=== PATIENT | male | born 1990 | race Caucasian/White ===

== ENCOUNTER 2019-09-06 11:38 | Emergency (ER) | payer OTHER ==
[2019-09-06] MEDS ORDERED: Sodium Chloride 0.9% 1000 ML 1,000 ML IV STA ×3 (11:50→14:32)
[2019-09-06] MEDS ORDERED: PROTONIX 40 MG IV IV ONE ×2 (11:50→12:19)
[2019-09-06] MEDS ORDERED: Zofran 4 MG/2 ML VIAL IV ONE (11:50)
--- NOTE | 2019-09-06 11:50 | ERPHSYRPT ---
- History of Present Illness Time Seen by Provider: 09/06/19 11:46 Historian: patient Exam Limitations: no limitations Physician History: This is a 28-year-old obese white male who is had his gallbladder removed in the past and presents with 2-day history of nausea vomiting diarrhea. He denies fevers. He denies excessive alcohol use. He does state he did have alcohol intake on Friday night prior to these symptoms on Friday. However, he did not drink any more than usual. Patient has no flulike symptoms other than the vomiting and diarrhea. No other individuals in the family or that he is around has similar symptoms. She did not have abdominal pain until he began vomiting several times. He states he is unable to hold any oral intake down. Patient states he is never had anything like this before. Timing/Duration: day(s) (2) Activities at Onset: none Quality: fullness Abdominal Pain Onset Location: generalized abdomen Pain Radiation: no radiation Severity of Pain-Max: mild Severity of Pain-Current: mild Modifying Factors: Improves With: vomiting Associated Symptoms: diarrhea, nausea, vomiting Previous symptoms: no prior history Allergies/Adverse Reactions: Penicillins Allergy (Severe, Verified 09/06/19 11:50) large hives Home Medications: Omeprazole Magnesium [Prilosec Otc] 20 mg PO DAILY PRN 09/06/19 [History] - Review of Systems Constitutional: No Symptoms Eyes: No Symptoms Ears, Nose, & Throat: No Symptoms Respiratory: No Symptoms Cardiac: No Symptoms Abdominal/Gastrointestinal: Abdominal Pain, Nausea, Vomiting, Diarrhea Genitourinary Symptoms: No Symptoms Musculoskeletal: No Symptoms Skin: No Symptoms Neurological: No Symptoms Psychological: No Symptoms Endocrine: No Symptoms Hematologic/Lymphatic: No Symptoms Immunological/Allergic: No Symptoms All Other Systems: Reviewed and Negative - Past Medical History Pertinent Past Medical History: Yes Neurological History: No Pertinent History ENT History: No Pertinent History Cardiac History: No Pertinent History Respiratory History: No Pertinent History Endocrine Medical History: No Pertinent History Musculoskeletal History: No Pertinent History GI Medical History: Gallbladder Disease History: No Pertinent History Psycho-Social History: No Pertinent History Male Reproductive Disorders: No Pertinent History - Past Surgical History Neuro Surgical History: No Pertinent History Cardiac: No Pertinent History Respiratory: No Pertinent History Gastrointestinal: No Pertinent History Genitourinary: No Pertinent History Musculoskeletal: No Pertinent History Male Surgical History: No Pertinent History - Nursing Vital Signs Nursing Vital Signs: Initial Vital Signs Temperature 98.1 F 09/06/19 11:44 Pulse Rate 117 H 09/06/19 11:44 Respiratory Rate 20 09/06/19 11:44 Blood Pressure 136/112 09/06/19 11:44 O2 Sat by Pulse Oximetry 94 L 09/06/19 11:44 Pain Scale Pain Intensity 0 - Physical Exam General Appearance: mild distress, alert, anxiety Eye Exam: PERRL/EOMI, eyes nml inspection Ears, Nose, Throat Exam: normal ENT inspection, moist mucous membranes Neck Exam: normal inspection, non-tender, supple, full range of motion Respiratory Exam: normal breath sounds, lungs clear, airway intact, No chest tenderness, No respiratory distress Cardiovascular Exam: regular rate/rhythm, normal heart sounds, normal peripheral pulses Gastrointestinal/Abdomen Exam: soft, normal bowel sounds, tenderness (mild diffuse), No guarding, No rebound Rectal Exam: not done Back Exam: normal inspection, normal range of motion, No CVA tenderness, No vertebral tenderness Extremity Exam: normal inspection, normal range of motion, pelvis stable Neurologic Exam: alert, oriented x 3, cooperative, 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-XII nml as tested, normal mood/affect, nml cerebellar function, nml station & gait Skin Exam: normal color, warm, dry Lymphatic Exam: No adenopathy SpO2 Interpretation: normal O2 Delivery: Room Air - Course Nursing assessment & vital signs reviewed: Yes Ordered Tests: Active Orders 24 hr Category Date Time Status IV Insertion STAT Care 09/06/19 11:50 Active ABDOMEN AND PELVIS W/0 CONTRAS [CT] Stat Exams 09/06/19 11:51 Completed AMYLASE Stat Lab 09/06/19 11:55 Completed CBC W DIFF Stat Lab 09/06/19 11:55 Completed CMP Stat Lab 09/06/19 11:55 Completed LIPASE Stat Lab 09/06/19 11:55 Completed UA W/RFX UR CULTURE Stat Lab 09/06/19 14:26 Completed Medication Summary Generic Name Dose Route Start Last Admin Trade Name Freq PRN Reason Stop Dose Admin Sodium Chloride 1,000 mls @ 999 mls/hr 09/06/19 14:32 09/06/19 14:36 Sodium Chloride 0.9% 1000 Ml IV 09/06/19 15:32 999 mls/hr .Q1H1M STA Administration Discontinued Medications Generic Name Dose Route Start Last Admin Trade Name Freq PRN Reason Stop Dose Admin Sodium Chloride 1,000 mls @ 999 mls/hr 09/06/19 11:50 09/06/19 13:09 Sodium Chloride 0.9% 1000 Ml IV 09/06/19 12:50 Infused .Q1H1M STA Infusion Sodium Chloride Confirm 09/06/19 12:19 Sodium Chloride 0.9% 1000 Ml Administered 09/06/19 12:20 Dose 1,000 mls @ ud .ROUTE .STK-MED ONE Sodium Chloride 1,000 mls @ 999 mls/hr 09/06/19 13:08 09/06/19 14:13 Sodium Chloride 0.9% 1000 Ml IV 09/06/19 14:08 Infused .Q1H1M STA Infusion Sodium Chloride Confirm 09/06/19 13:11 Sodium Chloride 0.9% 1000 Ml Administered 09/06/19 13:12 Dose 1,000 mls @ ud .ROUTE .STK-MED ONE Sodium Chloride Confirm 09/06/19 14:35 Sodium Chloride 0.9% 1000 Ml Administered 09/06/19 14:36 Dose 1,000 mls @ ud .ROUTE .STK-MED ONE Metronidazole 500 mg 09/06/19 14:32 09/06/19 14:36 Flagyl 500 Mg PO 09/06/19 14:33 500 mg STAT ONE Administration Metronidazole Confirm 09/06/19 14:35 Flagyl 500 Mg Administered 09/06/19 14:36 Dose 500 mg .ROUTE .STK-MED ONE Ondansetron HCl 4 mg 09/06/19 11:50 09/06/19 12:21 Zofran 4 Mg/2 Ml Vial IV 09/06/19 11:51 4 mg STAT ONE Administration Ondansetron HCl Confirm 09/06/19 12:19 Zofran 4 Mg/2 Ml Vial Administered 09/06/19 12:20 Dose 4 mg .ROUTE .STK-MED ONE Pantoprazole Sodium 40 mg 09/06/19 11:50 09/06/19 12:21 Protonix 40 Mg Iv IV 09/06/19 11:51 40 mg STAT ONE Administration Pantoprazole Sodium Confirm 09/06/19 12:19 Protonix 40 Mg Iv Administered 09/06/19 12:20 Dose 40 mg IV .STK-MED ONE Lab/Rad Data: Laboratory Result Diagrams 09/06/19 11:55 09/06/19 11:55 Laboratory Results 09/06/19 09/06/19 09/06/19 Range/Units 14:26 12:00 11:55 WBC (4.0-10.5) K/mm3 RBC (4.1-5.6) M/mm3 Hgb (12.5-18.0) gm/dl Hct (42-50) % MCV (78-100) fl MCH (26-32) pg MCHC (32-36) g/dl RDW (11.5-14.0) % Plt Count (150-450) K/mm3 MPV (7.5-11.0) fl Gran % (36.0-66.0) % Eos # (Auto) (0-0.5) Absolute Lymphs (auto) (1.0-4.6) Absolute Monos (auto) (0.0-1.3) Lymphocytes % (24.0-44.0) % Monocytes % (0.0-12.0) % Eosinophils % (0.00-5.0) % Basophils % (0.0-0.4) % Absolute Granulocytes (1.4-6.9) Basophils # (0-0.4) Sodium 142 (137-145) mmol/L Potassium 3.6 (3.5-5.1) mmol/L Chloride 101 (98-107) mmol/L Carbon Dioxide 28 (22-30) mmol/L Anion Gap 16.4 H (5-15) MEQ/L BUN 19 (9-20) mg/dL Creatinine 1.21 (0.66-1.25) mg/dL Estimated GFR > 60.0 ML/MIN Glucose 160 H (74-106) mg/dL Calcium 9.8 (8.4-10.2) mg/dL Total Bilirubin 2.10 H (0.2-1.3) mg/dL AST 32 (17-59) U/L ALT 57 H (0-50) U/L Alkaline Phosphatase 65 (38-126) U/L Serum Total Protein 8.8 H (6.3-8.2) g/dL Albumin 5.1 H (3.5-5.0) g/dL Amylase 60 (30-110) U/L Lipase 95 (23-300) U/L Urine Color ESTELA (YELLOW) Urine Appearance CLEAR (CLEAR) Urine pH 6.0 (5-6) Ur Specific [place] 1.031 (1.005-1.025) Urine Protein 100 (Negative) Urine Ketones NEGATIVE (NEGATIVE) Urine Blood NEGATIVE (0-5) Davie/ul Urine Nitrite NEGATIVE (NEGATIVE) Urine Bilirubin NEGATIVE (NEGATIVE) Urine Urobilinogen 4 (0-1) mg/dL Ur Leukocyte Esterase NEGATIVE (NEGATIVE) Urine WBC (Auto) NONE (0-5) /HPF Urine RBC (Auto) NONE (0-2) /HPF U Epithel Cells (Auto) NONE (FEW) /HPF Urine Bacteria (Auto) NONE (NEGATIVE) /HPF Urine Mucus (Auto) SLIGHT (NEGATIVE) /HPF Urine Culture Reflexed NO (NO) Urine Glucose NEGATIVE (NEGATIVE) mg/dL Influenza Type A Ag NEGATIVE (NEGATIVE) Influenza Type B Ag NEGATIVE (NEGATIVE) RSV (PCR) NEGATIVE (Negative) 09/06/19 Range/Units 11:55 WBC 11.2 H (4.0-10.5) K/mm3 RBC 5.81 H (4.1-5.6) M/mm3 Hgb 18.1 H (12.5-18.0) gm/dl Hct 51.6 H (42-50) % MCV 88.8 (78-100) fl MCH 31.2 (26-32) pg MCHC 35.1 (32-36) g/dl RDW 13.0 (11.5-14.0) % Plt Count 285 (150-450) K/mm3 MPV 9.8 (7.5-11.0) fl Gran % 64.3 (36.0-66.0) % Eos # (Auto) 0.26 (0-0.5) Absolute Lymphs (auto) 2.57 (1.0-4.6) Absolute Monos (auto) 1.12 (0.0-1.3) Lymphocytes % 23.0 L (24.0-44.0) % Monocytes % 10.0 (0.0-12.0) % Eosinophils % 2.3 (0.00-5.0) % Basophils % 0.4 (0.0-0.4) % Absolute Granulocytes 7.17 H (1.4-6.9) Basophils # 0.04 (0-0.4) Sodium (137-145) mmol/L Potassium (3.5-5.1) mmol/L Chloride (98-107) mmol/L Carbon Dioxide (22-30) mmol/L Anion Gap (5-15) MEQ/L BUN (9-20) mg/dL Creatinine (0.66-1.25) mg/dL Estimated GFR ML/MIN Glucose (74-106) mg/dL Calcium (8.4-10.2) mg/dL Total Bilirubin (0.2-1.3) mg/dL AST (17-59) U/L ALT (0-50) U/L Alkaline Phosphatase (38-126) U/L Serum Total Protein (6.3-8.2) g/dL Albumin (3.5-5.0) g/dL Amylase (30-110) U/L Lipase (23-300) U/L Urine Color (YELLOW) Urine Appearance (CLEAR) Urine pH (5-6) Ur Specific [place] (1.005-1.025) Urine Protein (Negative) Urine Ketones (NEGATIVE) Urine Blood (0-5) Davie/ul Urine Nitrite (NEGATIVE) Urine Bilirubin (NEGATIVE) Urine Urobilinogen (0-1) mg/dL Ur Leukocyte Esterase (NEGATIVE) Urine WBC (Auto) (0-5) /HPF Urine RBC (Auto) (0-2) /HPF U Epithel Cells (Auto) (FEW) /HPF Urine Bacteria (Auto) (NEGATIVE) /HPF Urine Mucus (Auto) (NEGATIVE) /HPF Urine Culture Reflexed (NO) Urine Glucose (NEGATIVE) mg/dL Influenza Type A Ag (NEGATIVE) Influenza Type B Ag (NEGATIVE) RSV (PCR) (Negative) - Progress Progress: improved Progress Note: 09/06/19 15:01 The CAT scan of the abdomen and pelvis reveals distal esophagitis and jejunal enteritis. States that he is feeling much better. Counseled pt/family regarding: lab results, diagnosis, need for follow-up, rad results - Departure Departure Disposition: Home Clinical Impression: Enteritis, Esophagitis Condition: Stable Critical Care Time: No Additional Instructions: Plenty of clear liquids. Advance your diet as discussed. Take your Prilosec medication daily until you speak with your primary care doctor. Follow-up with your primary care doctor for further management and possible referral to a speeder worker if indicated. Take your medications as prescribed. Avoid fatty greasy spicy foods. Prescriptions: Ondansetron ODT 4 MG [Zofran Odt 4 mg] 4 mg PO Q6H PRN PRN #10 tab.rapdis PRN Reason: Vomiting Metronidazole 500 mg [Flagyl 500 MG] 500 mg PO TID #21 tablet
[2019-09-06 12:07] LABS: Absolute Neutrophil Ct (ANC) 7.17 (1.4-6.9); BASOPHIL % 0.4 % (0.0-0.4); Basophil (Absolute #) 0.04 (0-0.4); Eosinophil % 2.3 % (0.00-5.0); Eosinophil (Absolute #) 0.26 (0-0.5); Hematocrit 51.6 % (42-50); Hemoglobin 18.1 gm/dl (12.5-18.0); Lymphocyte (Absolute #) 2.57 (1.0-4.6); Mean Cell Volume 88.8 fl (78-100); Mean Corpuscular Hemoglobin 31.2 pg (26-32); Mean Corpuscular Hgb Concent. 35.1 g/dl (32-36); Mean Platelet Volume 9.8 fl (7.5-11.0); Monocyte (Absolute #) 1.12 (0.0-1.3); Neutrophil % 64.3 % (36.0-66.0); Platelet Count 285 K/mm3 (150-450); Red Blood Count 5.81 M/mm3 (4.1-5.6); White Blood Count 11.2 K/mm3 (4.0-10.5)
[2019-09-06 12:19] LABS: ALBUMIN 5.1 g/dL (3.5-5.0); ALKALINE PHOSPHATASE 65 U/L (38-126); AMYLASE 60 U/L (30-110); ANION GAP 16.4 MEQ/L (5-15); BLOOD UREA NITROGEN 19 mg/dL (9-20); CHLORIDE 101 mmol/L (98-107); Calcium 9.8 mg/dL (8.4-10.2); Carbon Dioxide 28 mmol/L (22-30); Creatinine 1 1.21 mg/dL (0.66-1.25); Glucose 160 mg/dL (74-106); LIPASE 95 U/L (23-300); Potassium 3.6 mmol/L (3.5-5.1); SGOT/AST 32 U/L (17-59); SGPT/ALT 57 U/L (0-50); SODIUM 142 mmol/L (137-145); Total Protein 8.8 g/dL (6.3-8.2)
[2019-09-06] MEDS ORDERED: Zofran 4 MG/2 ML VIAL ONE (12:19)
[2019-09-06] MEDS ORDERED: Sodium Chloride 0.9% 1000 ML 1,000 ML ONE ×3 (12:19→14:35)
--- NOTE | 2019-09-06 12:22 | XRAY ---
Indication: Vomiting and diarrhea 3 days. Multiple contiguous axial images obtained through the abdomen and pelvis without contrast as ordered. Comparison: None Lung bases clear with incidental left lower lobe calcified granulomas. Heart is not enlarged. Tiny distal paraesophageal calcified node and centimeters/subcentimeter nodes. Distal esophagus demonstrate moderate circumferential wall thickening, possible reflux esophagitis. Small hiatal hernia. Noncontrasted stomach and bowel loops appear nonobstructed. Left mid abdomen demonstrates mild fluid distended jejunal bowel loops with wall thickening favoring enteritis. Normal appendix. No free fluid/air. Mild diffuse fatty liver and previous cholecystectomy. Remaining liver, pancreas, spleen, adrenal glands, kidneys, ureters, bladder, and aorta appear unremarkable for noncontrast exam. Osseous structures intact. No ventral or inguinal hernias. Impression: 1. Mild fluid distended jejunum with wall thickening favoring enteritis. 2. Small hiatal hernia with distal esophageal circumferential wall thickening. Rule out reflux esophagitis. 3. Incidental fatty liver and evidence for old granulomatous disease.
[2019-09-06 12:39] LABS: INFLUENZA A NEGATIVE (NEGATIVE); INFLUENZA B NEGATIVE (NEGATIVE); RESPIRATORY SYNCTIAL VIRUS NEGATIVE (Negative)
[2019-09-06 14:10] VITALS: BP 124/89; O2SAT 94
[2019-09-06] MEDS ORDERED: Flagyl 500 MG PO ONE (14:32)
[2019-09-06] MEDS ORDERED: Flagyl 500 MG ONE (14:35)
[2019-09-06 14:40] LABS: Appearance CLEAR (CLEAR); Bilirubin NEGATIVE (NEGATIVE); Blood NEGATIVE Ery/ul (0-5); Glucose NEGATIVE (NEGATIVE); Ketones NEGATIVE (NEGATIVE); Leukocyte Esterase NEGATIVE (NEGATIVE); Mucus SLIGHT /HPF (NEGATIVE); Nitrite NEGATIVE (NEGATIVE); Protein,Urine Dip 100 (Negative); Specific Gravity 1.031 (1.005-1.025); Urobilinogen 4 mg/dL (0-1)
[2019-09-06 14:58] VITALS: PULSE 86
== END 2019-09-06 15:42 | disposition home or self-care (01) ==
LOC: ED 11:38
DX: K52.9 Noninfective gastroenteritis and colitis, unspecified (principal); K20.9 Esophagitis, unspecified; R19.7 Diarrhea, unspecified; R11.2 Nausea with vomiting, unspecified; R10.9 Unspecified abdominal pain
CPT/HCPCS: 36000; 36415; 74176; 80053; 81001; 82150; 83690; 85025; 87631; 96360; 96361; 96374; 96375; 99285; J2405; A9270-GY

== ENCOUNTER 2019-09-25 20:48 | Emergency (ER) | payer OTHER ==
--- NOTE | 2019-09-25 20:57 | ERPHSYRPT ---
- History of Present Illness Time Seen by Provider: 09/25/19 20:57 Source: patient, family Exam Limitations: no limitations Physician History: This is a 28-year-old male who stepped wrong off of a curb last night and twisted his ankle. Today has more pain swelling and bruising present on the left ankle. He presents with left ankle pain and swelling and bruising. Method of Injury: twisted Occurred: yesterday Quality: aching, throbbing Severity of Pain-Max: mild Severity of Pain-Current: mild Lower Extremities Pain: ankle: left Modifying Factors: Improves With: movement Associated Symptoms: other (Able to bear weight but hurts to do so) Allergies/Adverse Reactions: Penicillins Allergy (Severe, Verified 09/25/19 21:06) large hives Home Medications: Omeprazole Magnesium [Prilosec Otc] 20 mg PO DAILY PRN 09/06/19 [History] Hx Tetanus, Diphtheria Vaccination/Date Given: Yes Hx Influenza Vaccination/Date Given: No Hx Pneumococcal Vaccination/Date Given: No - Review of Systems Constitutional: No Symptoms Eyes: No Symptoms Ears, Nose, & Throat: No Symptoms Respiratory: No Symptoms Cardiac: No Symptoms Abdominal/Gastrointestinal: No Symptoms Genitourinary Symptoms: No Symptoms Musculoskeletal: Injury (Left ankle) Skin: No Symptoms Neurological: No Symptoms Psychological: No Symptoms Endocrine: No Symptoms Hematologic/Lymphatic: No Symptoms Immunological/Allergic: No Symptoms All Other Systems: Reviewed and Negative - Past Medical History Pertinent Past Medical History: Yes Neurological History: No Pertinent History ENT History: No Pertinent History Cardiac History: No Pertinent History Respiratory History: No Pertinent History Endocrine Medical History: No Pertinent History Musculoskeletal History: No Pertinent History GI Medical History: Gallbladder Disease History: No Pertinent History Psycho-Social History: No Pertinent History Male Reproductive Disorders: No Pertinent History - Past Surgical History Past Surgical History: Yes Neuro Surgical History: No Pertinent History Cardiac: No Pertinent History Respiratory: No Pertinent History Gastrointestinal: No Pertinent History Genitourinary: No Pertinent History Musculoskeletal: No Pertinent History Male Surgical History: No Pertinent History Other Surgical History: federico. left collar bone - Social History Smoking Status: Former smoker Exposure to second hand smoke: Yes Drug Use: none Patient Lives Alone: No - Nursing Vital Signs Nursing Vital Signs: Initial Vital Signs Temperature 98.2 F 09/25/19 20:56 Pulse Rate 130 H 09/25/19 20:56 Respiratory Rate 18 03/07/20 20:56 Blood Pressure 148/102 09/25/19 20:56 O2 Sat by Pulse Oximetry 96 09/25/19 20:56 Pain Scale Pain Intensity 7 - Physical Exam General Appearance: no apparent distress, alert, anxiety Eyes, Ears, Nose, Throat Exam: normal ENT inspection, moist mucous membranes Neck Exam: normal inspection, non-tender, supple, full range of motion Cardiovascular/Respiratory Exam: chest non-tender Gastrointestinal/Abdominal Exam: non-tender Back Exam: normal inspection, normal range of motion, No CVA tenderness, No vertebral tenderness Hips Exam: bilateral: non-tender, normal inspection, normal range of motion, no evidence of injury Legs Exam: bilateral leg: non-tender, normal inspection, normal range of motion , no evidence of injury Knees Exam: bilateral knee: non-tender, normal inspection, normal range of motion, no evidence of injury Ankle Exam: right ankle: non-tender, normal inspection, normal range of motion, no evidence of injury, left ankle: ecchymosis, soft tissue tenderness, swelling Foot Exam: bilateral foot: non-tender, normal inspection, normal range of motion , no evidence of injury Neuro/Tendon Exam: normal sensation, normal motor functions, normal tendon functions Mental Status Exam: alert, oriented x 3, cooperative Skin Exam: normal color, warm, dry SpO2 Interpretation: normal O2 Delivery: Room Air - Course Nursing assessment & vital signs reviewed: Yes Ordered Tests: Active Orders 24 hr Category Date Time Status ANKLE (3 VIEWS) Stat Exams 09/25/19 21:00 Taken Medication Summary Generic Name Dose Route Start Last Admin Trade Name Freq PRN Reason Stop Dose Admin Oxycodone/Acetaminophen 2 tab 09/25/19 21:52 Percocet Tablet 5/325mg PO 09/25/19 21:53 SENT HOME W/ PATIENT STA Discontinued Medications Generic Name Dose Route Start Last Admin Trade Name Freq PRN Reason Stop Dose Admin Oxycodone/Acetaminophen 1 tab 09/25/19 21:51 Percocet Tablet 5/325mg PO 09/25/19 21:52 STAT STA - Progress Progress: improved Progress Note: 09/25/19 21:53 X-ray of left ankle reveals no acute fracture or dislocation Counseled pt/family regarding: diagnosis, need for follow-up, rad results - Departure Departure Disposition: Home Clinical Impression: Left ankle sprain Condition: Stable Critical Care Time: No Referrals: ADALI ANGELO FNP, [Primary Care Provider] - Additional Instructions: Use Kevin wrap and crutches as needed for comfort. Weightbearing as tolerated. Add ibuprofen 600 mg orally with food 3 times a day for pain control. Follow- up with your primary care physician or with the [facility] orthopedic clinic for persistent symptoms. Forms: Ortho Referral
[2019-09-25] MEDS ORDERED: PERCOCET TABLET 5/325MG PO STA ×2 (21:51→21:52)
[2019-09-25] MEDS ORDERED: PERCOCET TABLET 5/325MG ONE (21:57)
[2019-09-25 22:09] VITALS: BP 132/99; PULSE 104; O2SAT 97
--- NOTE | 2019-09-26 08:51 | XRAY ---
Indication: Pain following injury. Comparison: None 3 views of the right ankle demonstrates mild soft tissue swelling and tiny heel spurs. No other bony, articular, or soft tissue abnormalities.
== END 2019-09-25 22:25 | disposition home or self-care (01) ==
LOC: ED 20:48
DX: S93.402A Sprain of unspecified ligament of left ankle, initial encounter (principal); W10.1XXA Fall (on)(from) sidewalk curb, initial encounter; M25.572 Pain in left ankle and joints of left foot
CPT/HCPCS: 73610; 99284; A9270-GY

== ENCOUNTER 2020-07-23 21:04 | Emergency (ER) | payer OTHER ==
[2020-07-23 21:18] VITALS: PULSE 97
[2020-07-23 21:42] LABS: Amourphous Crystal FEW /HPF (NEGATIVE); Appearance SLIGHTLY CLOUDY (CLEAR); Bacteria RARE /HPF (NEGATIVE); Bilirubin NEGATIVE (NEGATIVE); Blood NEGATIVE Ery/ul (0-5); Glucose NEGATIVE (NEGATIVE); Ketones NEGATIVE (NEGATIVE); Leukocyte Esterase NEGATIVE (NEGATIVE); Mucus SLIGHT /HPF (NEGATIVE); Nitrite NEGATIVE (NEGATIVE); Protein,Urine Dip 30 (Negative); Specific Gravity 1.031 (1.005-1.025); Urobilinogen 2 mg/dL (0-1)
[2020-07-23 21:58] LABS: BASOPHIL % 0.3 % (0.0-0.4); Basophil (Absolute #) 0.01 (0-0.4); Eosinophil % 5.9 % (0.00-5.0); Eosinophil (Absolute #) 0.22 (0-0.5); Hematocrit 44.4 % (42-50); Hemoglobin 15.2 gm/dl (12.5-18.0); Lymphocyte (Absolute #) 1.32 (1.0-4.6); Lymphocytes % 35.7 % (24.0-44.0); Mean Cell Volume 90.8 fl (78-100); Mean Corpuscular Hemoglobin 31.1 pg (26-32); Mean Corpuscular Hgb Concent. 34.2 g/dl (32-36); Monocyte (Absolute #) 0.45 (0.0-1.3); Monocytes % 12.2 % (0.0-12.0); Neutrophil % 45.9 % (36.0-66.0); Platelet Count 164 K/mm3 (150-450); Red Blood Count 4.89 M/mm3 (4.1-5.6); Red Cell Distribution Width 12.4 % (11.5-14.0); White Blood Count 3.7 K/mm3 (4.0-10.5)
[2020-07-23 22:11] LABS: ALBUMIN 4.2 g/dL (3.5-5.0); ALKALINE PHOSPHATASE 51 U/L (38-126); AMYLASE 40 U/L (30-110); ANION GAP 10.6 MEQ/L (5-15); BLOOD UREA NITROGEN 15 mg/dL (9-20); CHLORIDE 105 mmol/L (98-107); Calcium 8.7 mg/dL (8.4-10.2); Carbon Dioxide 25 mmol/L (22-30); Creatinine 1 1.15 mg/dL (0.66-1.25); EST GLOMERULAR FILTRATION RATE > 60.0 ML/MIN; Glucose 127 mg/dL (74-106); LIPASE 196 U/L (23-300); SGOT/AST 51 U/L (17-59); SGPT/ALT 89 U/L (0-50); SODIUM 137 mmol/L (137-145); Total Protein 7.4 g/dL (6.3-8.2)
--- NOTE | 2020-07-23 22:33 | ERPHSYRPT ---
- History of Present Illness Time Seen by Provider: 07/23/20 21:25 Historian: patient Exam Limitations: no limitations Patient Subjective Stated Complaint: pt c/o lt sided lower abd pain Triage Nursing Assessment: pt c/o lt sided lower abd pain, states, "it felt like I was being stabbed with a knife and someone was twisting it. this occured 2-3 times". Pt's informed him his abd was discolored and turning purple and made him come to Er. Pt has multiple stretch toledo to abd that are purple in color, all which appear normal to this pt. Abd lg, obese with active bs x4 quad, tender to LLQ on palpation. Pts had diarrhea 3-4 times today, c/o body aches. Physician History: Patient is a 29-year-old male who presents with a complaint of left sided abdominal pain sharp stabbing pains which lasts a few minutes and come and go. His noted that he had some bluish discoloration to his abdomen and that when she pressed the area it would eun. It should be noted he has marked stretch [place]o which are quite blue in color. He denies any fever chills sweats nasal congestion sore throat cough etc. Timing/Duration: today Activities at Onset: none Quality: sharpness, stabbing Abdominal Pain Onset Location: LLQ Pain Radiation: no radiation Severity of Pain-Max: moderate Severity of Pain-Current: none Modifying Factors: Improves With: nothing Associated Symptoms: diarrhea Previous symptoms: no prior history Allergies/Adverse Reactions: Penicillins Allergy (Severe, Verified 07/23/20 21:24) large hives Home Medications: Omeprazole Magnesium [Prilosec Otc] 20 mg PO DAILY PRN 09/06/19 [History] Hx Tetanus, Diphtheria Vaccination/Date Given: Yes Hx Influenza Vaccination/Date Given: No Hx Pneumococcal Vaccination/Date Given: No Immunizations Up to Date: Yes Travel Risk - International Travel Have you traveled outside of the country in past 3 weeks: No - Coronavirus Screening Are you exhibiting any of the following symptoms?: Yes Symptoms: Vomiting/Diarrhea, Headaches/Body Aches/Fatigue Close contact with a COVID-19 positive Pt in past 14-21 Days: No - Review of Systems Constitutional: No Fever, No Chills Eyes: No Symptoms Ears, Nose, & Throat: No Symptoms Respiratory: No Cough, No Dyspnea Cardiac: No Chest Pain, No Edema, No Syncope Abdominal/Gastrointestinal: Abdominal Pain, Diarrhea, No Nausea, No Vomiting Genitourinary Symptoms: No Dysuria Musculoskeletal: No Back Pain, No Neck Pain Skin: No Rash Neurological: No Dizziness, No Focal Weakness, No Sensory Changes Psychological: No Symptoms Endocrine: No Symptoms All Other Systems: Reviewed and Negative - Past Medical History Pertinent Past Medical History: Yes Neurological History: No Pertinent History ENT History: No Pertinent History Cardiac History: No Pertinent History Respiratory History: No Pertinent History Endocrine Medical History: No Pertinent History Musculoskeletal History: No Pertinent History GI Medical History: Gallbladder Disease History: No Pertinent History Psycho-Social History: No Pertinent History Male Reproductive Disorders: No Pertinent History - Past Surgical History Past Surgical History: Yes Neuro Surgical History: No Pertinent History Cardiac: No Pertinent History Respiratory: No Pertinent History Gastrointestinal: Cholecystectomy Genitourinary: No Pertinent History Musculoskeletal: Orthopedic Surgery Male Surgical History: No Pertinent History Other Surgical History: [place]. left collar bone. lt shoulder surgery - Social History Smoking Status: Never smoker Exposure to second hand smoke: No Drug Use: none Patient Lives Alone: No - Nursing Vital Signs Nursing Vital Signs: Initial Vital Signs Temperature 99.1 F 07/23/20 21:10 Pulse Rate 97 H 07/23/20 21:10 Respiratory Rate 18 07/23/20 21:10 Blood Pressure 136/97 07/23/20 21:10 O2 Sat by Pulse Oximetry 96 07/23/20 21:10 Pain Scale Pain Intensity 4 - Physical Exam General Appearance: no apparent distress, alert Eye Exam: PERRL/EOMI, eyes nml inspection Ears, Nose, Throat Exam: normal ENT inspection, pharynx normal, moist mucous membranes Neck Exam: normal inspection, non-tender, supple, full range of motion Respiratory Exam: normal breath sounds, lungs clear, No respiratory distress Cardiovascular Exam: regular rate/rhythm, normal heart sounds Gastrointestinal/Abdomen Exam: soft, No tenderness, No mass Back Exam: normal inspection, normal range of motion, No CVA tenderness, No vertebral tenderness Extremity Exam: normal inspection, normal range of motion, pelvis stable Neurologic Exam: alert, oriented x 3, cooperative, normal mood/affect, nml cerebellar function, sensation nml, No motor deficits Skin Exam: warm, dry, other (Patient exhibits multiple stretch [place]o on his abdomen which are somewhat blue in color.) SpO2: 96 - Course Nursing assessment & vital signs reviewed: Yes - CT Exams Abdomen/Pelvis CT Interpretation: Tele-radiologist Report, Other (Total radiologist report states that the abdomen pelvis are unremarkable however patches of groundglass opacities in the bases of both lungs are noted consistent with infection pneumonitis etc.) Ordered Tests: Active Orders 24 hr Category Date Time Status ABDOMEN AND PELVIS W/0 CONTRAS [CT] Stat Exams 07/23/20 21:17 Taken AMYLASE Stat Lab 07/23/20 21:45 Completed CBC W DIFF Stat Lab 07/23/20 21:45 Completed CMP Stat Lab 07/23/20 21:45 Completed LIPASE Stat Lab 07/23/20 21:45 Completed UA W/RFX UR CULTURE Stat Lab 07/23/20 21:30 Completed Lab/Rad Data: Laboratory Result Diagrams 07/23/20 21:45 07/23/20 21:45 Laboratory Results 07/23/20 07/23/20 07/23/20 Range/Units 21:45 21:45 21:30 WBC 3.7 L (4.0-10.5) K/mm3 RBC 4.89 (4.1-5.6) M/mm3 Hgb 15.2 (12.5-18.0) gm/dl Hct 44.4 (42-50) % MCV 90.8 (78-100) fl MCH 31.1 (26-32) pg MCHC 34.2 (32-36) g/dl RDW 12.4 (11.5-14.0) % Plt Count 164 (150-450) K/mm3 MPV 10.0 (7.5-11.0) fl Gran % 45.9 (36.0-66.0) % Eos # (Auto) 0.22 (0-0.5) Absolute Lymphs (auto) 1.32 (1.0-4.6) Absolute Monos (auto) 0.45 (0.0-1.3) Lymphocytes % 35.7 (24.0-44.0) % Monocytes % 12.2 H (0.0-12.0) % Eosinophils % 5.9 H (0.00-5.0) % Basophils % 0.3 (0.0-0.4) % Absolute Granulocytes 1.70 (1.4-6.9) Basophils # 0.01 (0-0.4) Sodium 137 (137-145) mmol/L Potassium 4.0 (3.5-5.1) mmol/L Chloride 105 (98-107) mmol/L Carbon Dioxide 25 (22-30) mmol/L Anion Gap 10.6 (5-15) MEQ/L BUN 15 (9-20) mg/dL Creatinine 1.15 (0.66-1.25) mg/dL Estimated GFR > 60.0 ML/MIN Glucose 127 H (74-106) mg/dL Calcium 8.7 (8.4-10.2) mg/dL Total Bilirubin 0.60 (0.2-1.3) mg/dL AST 51 (17-59) U/L ALT 89 H (0-50) U/L Alkaline Phosphatase 51 (38-126) U/L Serum Total Protein 7.4 (6.3-8.2) g/dL Albumin 4.2 (3.5-5.0) g/dL Amylase 40 (30-110) U/L Lipase 196 (23-300) U/L Urine Color ESTELA (YELLOW) Urine Appearance SLIGHTLY CLOUDY (CLEAR) Urine pH 5.0 (5-6) Ur Specific [place] 1.031 (1.005-1.025) Urine Protein 30 (Negative) Urine Ketones NEGATIVE (NEGATIVE) Urine Blood NEGATIVE (0-5) Davie/ul Urine Nitrite NEGATIVE (NEGATIVE) Urine Bilirubin NEGATIVE (NEGATIVE) Urine Urobilinogen 2 (0-1) mg/dL Ur Leukocyte Esterase NEGATIVE (NEGATIVE) Urine WBC (Auto) NONE (0-5) /HPF Urine RBC (Auto) NONE (0-2) /HPF U Epithel Cells (Auto) NONE (FEW) /HPF Urine Bacteria (Auto) RARE (NEGATIVE) /HPF Amorphous Crystals FEW (NEGATIVE) /HPF Urine Mucus (Auto) SLIGHT (NEGATIVE) /HPF Urine Culture Reflexed NO (NO) Urine Glucose NEGATIVE (NEGATIVE) mg/dL - Progress Progress: improved - Departure Departure Disposition: Home Clinical Impression: Abdominal pain Condition: Stable Critical Care Time: No Referrals: ADALI ANGELO FNP, [Primary Care Provider] - Instructions: Acute Abdomen (Belly Pain), Adult (DC) Additional Instructions: Pneumonia Prescriptions: Dexamethasone 4 mg [Decadron 4 MG] 8 mg PO BID 5 Days #20 tablet Doxycycline Hyclate 100 mg [Vibramycin 100 MG] 100 mg PO BID #14 tab
[2020-07-23 23:13] VITALS: BP 137/96; O2SAT 97
--- NOTE | 2020-07-24 08:44 | XRAY ---
Indication: Left lower quadrant pain. Vomiting and diarrhea. Multiple contiguous axial images obtained through the abdomen and pelvis without contrast as ordered. Comparison: September 06, 2019. Lung bases demonstrates new patchy posterior airspace disease bilaterally without effusion. Stable calcified granulomas. Heart is not enlarged. Stomach is distended with food/fluid. Noncontrasted stomach and bowel loops remain nonobstructed. Normal appendix. No free fluid/air. Stable diffuse fatty hepatomegaly measuring 21.5 cm and cholecystectomy. Remaining pancreas, spleen, adrenal glands, kidneys, ureters, bladder, and aorta appear unremarkable for noncontrast exam. Stable small nonpathologic periaortic nodes. No pathologic retroperitoneal lymphadenopathy. Osseous structures intact. Impression: 1. New bilateral lower lobe patchy airspace disease. 2. Stable fatty hepatomegaly and old granulomatous disease. 3. Remaining CT abdomen/pelvis without contrast exam is negative. Comment: Preliminary interpretation was made by [facility]. No critical discrepancy.
== END 2020-07-23 23:11 | disposition home or self-care (01) ==
LOC: ED 21:04
DX: R10.32 Left lower quadrant pain (principal); R51.9 Headache, unspecified; R11.10 Vomiting, unspecified; R53.83 Other fatigue; R19.7 Diarrhea, unspecified; Z79.899 Other long term (current) drug therapy
CPT/HCPCS: 36415; 74176; 80053; 81001; 82150; 83690; 85025; 99283